=== PATIENT | female | born 1980 | race American Indian/Alaskan Native ===

== ENCOUNTER 2018-12-19 08:20 | Outpatient (CLI) | payer OTHER ==
--- NOTE | 2018-12-22 09:19 | Mammography Report ---
BILATERAL DIGITAL SCREENING MAMMOGRAMS WITH CAD INDICATION: Screening. COMPARISONS: None available. However, she indicated that she had had a prior mammogram from [place]. FINDINGS: Craniocaudal and mediolateral oblique views of both breasts were obtained using 2-D digital acquisition. In addition to standard review, the examination was analyzed for possible abnormalities using a compu ter-assisted detection device (iCAD). The breast tissue is heterogeneously dense, which may obscure small masses. A right asymmetry on the MLO view requires comparison with the prior mammogram or additional imaging. The left breast is negative. IMPRESSION: Comparison with the previous mammogram is required. We will attempt to obtain a prior mammogram for c omparison. If we did not obtain a prior mammogram within 30 days, a revised report will be issued rec ommending a recall for additional imaging. Please be advised that the patient should not schedule an appointment for return until adequate time (at least 2 weeks) has passed breast to obtain the prior m ammogram. BI-RADS CATEGORY 0: INCOMPLETE - NEED ADDITIONAL IMAGING EVALUATION AND/OR PRIOR MAMMOGRAMS FOR COMP ARISON Information is entered into a reminder system for a target due date for the next mammogram. The resul ts and recommendations were sent to the patient by mail. Signer Name: Colby Wyman MD Signed: 12/22/2018 9:15 AM Workstation Name: [id number]
== END 2018-12-19 08:21 | disposition home or self-care (01) ==
LOC: MAMMO 08:20
PROVIDERS: ATTEND Obstetrics & Gynecology
DX: Z12.31 Encounter for screening mammogram for malignant neoplasm of breast (principal)
CPT/HCPCS: 77067

== ENCOUNTER 2021-09-28 08:29 | Outpatient (CLI) | payer OTHER ==
--- NOTE | 2021-09-28 10:20 | Ultrasound Report ---
BILATERAL DIGITAL DIAGNOSTIC MAMMOGRAM WITH CAD CONVENTIONAL, 09/28/2021 RIGHT LIMITED BREAST ULTRASOUND CLINICAL INFORMATION / INDICATION: Palpable abnormality in the upper outer quadrant of the right [address]. TECHNIQUE: Digital bilateral mammographic imaging was performed. Limited ultrasound was performed. Th is examination was interpreted with the benefit of Computer-Aided Detection (CAD) analysis. COMPARISON: 12/19/2018, 03/26/2016 FINDINGS: Breast Density: The breasts are heterogeneously dense, which may obscure small masses. MAMMOGRAPHIC FINDINGS: No dominant mass, suspicious calcifications, or architectural distortion in ei ther breast. ULTRASOUND FINDINGS: Targeted ultrasound evaluation was performed of the area of interest. There is a 5 x 3 x 7 mm cyst in the 10:00 position of the right breast. No suspicious sonographic abnormaliti es are seen. IMPRESSION: No mammographic or sonographic evidence of malignancy. Follow up recommendation: Routine yearly. Clinical correlation is recommended regarding the area of p alpable concern. BI-RADS Category 2: BENIGN. A "NORMAL" OR NEGATIVE REPORT SHOULD NOT DISCOURAGE FOLLOW UP OR BIOPSY OF A CLINICALLY SIGNIFICANT F INDING. A written summary of these findings will be mailed to the patient. The patient will be entered into a mammography reporting system which will generate a reminder letter for the patient's next appointmen t at the appropriate interval. According to the [employer], yearly mammograms are recommended starting at age 40 and continuing as long as a woman is in good health. Breast MRI is recommended for women with an valeriy roximately 20-25% or greater lifetime risk of breast cancer, including women with a strong family his tory of breast or ovarian cancer and women who have been treated for Hodgkin's disease. Signer Name: Abraham Gilliland MD Signed: 09/28/2021 10:15 AM Workstation Name: [id number]
== END 2021-09-28 08:30 | disposition home or self-care (01) ==
LOC: MAMMO 08:29
PROVIDERS: ATTEND Obstetrics & Gynecology
DX: N60.01 Solitary cyst of right breast (principal); N63.11 Unspecified lump in the right breast, upper outer quadrant; R92.2 Inconclusive mammogram
CPT/HCPCS: 77066